=== PATIENT | male | born 1995 | race Caucasian/White ===

== ENCOUNTER 2021-02-09 05:02 | Emergency (ER) | payer SELFPAY ==
[2021-02-09] MEDS ORDERED: Sodium Chloride 0.9% 10 ML Syringe FLUSH PRN (05:19)
[2021-02-09] MEDS ORDERED: Lactated Ringers 1,000 ML IV ONE (05:20)
[2021-02-09] MEDS ORDERED: Naloxone 2 MG/2 ML Syringe IVPUSH ONE (05:20)
--- NOTE | 2021-02-09 05:50 | EDM.PDOC ---
ED HPI GENERAL MEDICAL PROBLEM - General Chief Complaint: Drug or Alcohol Abuse Stated Complaint: overdose Time Seen by Provider: 02/09/21 05:30 Source of Information: Reports: Patient, EMS History Limitations: Reports: No Limitations - History of Present Illness INITIAL COMMENTS - FREE TEXT/NARRATIVE: Patient comes emergency department today by ambulance from home with concerns of a heroin overdose. This patient who has a history of polysubstance abuse and no other past medical history at approximately 4:00 this morning he was smoking what he thought was heroin with his cousin. His cousin noted shortly after smoking heroin that he had some snoring respirations. The cousin administered intranasal Narcan in the ambulance was summoned. Upon EMS arrival the patient was alert and pale and nauseated. Upon arrival the patient is alert and oriented. He relates that he was smoking heroin. He denies taking anything else in an attempt to harm himself. He denies any Tylenol ingestion. He typically uses methamphetamines as an IV drug of choice but he was smoking what he thought was heroin tonight. He complains of being nauseated and weak but he has no chest pain difficulty breathing cough or congestion. No abdominal pain. No vomiting. No hematuria dysuria urinary frequency. No black or tarry stools. - Related Data Allergies Allergy/AdvReac Type Severity Reaction Status Date / Time No Known Allergies Allergy Verified 07/24/19 05:36 Home Meds: Home Meds Gabapentin [Neurontin] 600 mg PO DAILY 02/09/21 [History] risperiDONE [Risperdal] 1 mg PO TID 02/09/21 [History] Past Medical History - Past Health History Medical/Surgical History: Denies Medical/Surgical History Social & Family History - Family History Family Medical History: No Pertinent Family History - Caffeine Use Caffeine Use: Reports: None ED ROS GENERAL - Review of Systems Review Of Systems: Comprehensive ROS is negative, except as noted in HPI. - Physical Exam Exam: See Below Exam Limited By: No Limitations General Appearance: Alert, WD/WN, No Apparent Distress Eye Exam: Bilateral Eye: EOMI, PERRL Ears: Normal External Exam Nose: Normal Inspection Throat/Mouth: Normal Inspection Head Exam: Atraumatic, Normocephalic Neck: Normal Inspection, Supple, Non-Tender, Full Range of Motion Respiratory/Chest: No Respiratory Distress, Lungs Clear, Normal Breath Sounds, No Accessory Muscle Use, Chest Non-Tender Cardiovascular: Normal Peripheral Pulses, Regular Rate, Rhythm, Tachycardia GI/Abdominal: Normal Bowel Sounds, Soft, Non-Tender (Male) Exam: Deferred Rectal (Males) Exam: Deferred Neuro Exam (Abbreviated): Alert, Oriented, Normal Cognition, No Motor/Sensory Deficits Back Exam: Normal Inspection Extremities: Normal Inspection, Normal Range of Motion, No Pedal Edema, Normal Capillary Refill Psychiatric: Anxious Skin Exam: Intact, No Rash, Cool, Diaphoretic, Pallor Course - Vital Signs Last Recorded V/S: Last Vital Signs Temp 96.2 F L 02/09/21 06:26 Pulse 93 02/09/21 08:00 Resp 19 02/09/21 08:00 BP 142/76 H 02/09/21 08:00 Pulse Ox 100 02/09/21 08:00 - Orders/Labs/Meds Orders: Active Orders 24 hr Category Date Time Status SALICYLATE [REF] Stat Lab 02/09/21 05:35 Received Peripheral IV Insertion Adult [OM.PC] Stat Oth 02/09/21 05:19 Ordered Labs: Laboratory Tests 02/09/21 02/09/21 02/09/21 Range/Units 05:30 05:30 05:35 WBC 8.8 (4.0-10.2) K/uL RBC 5.16 (4.33-5.41) M/uL Hgb 15.5 (13.1-16.8) g/dL Hct 43.6 (39.0-49.0) % MCV 84.5 (84.0-98.0) fL MCH 30.0 (28.2-33.3) pg MCHC 35.6 (31.7-36.0) g/dL RDW 11.9 (11.2-14.1) % Plt Count 385 H (150-350) K/uL Neut % (Auto) 49.5 (45.0-80.0) % Lymph % (Auto) 37.7 (10.0-50.0) % [place] % (Auto) 11.1 (2.0-14.0) % Eos % (Auto) 1.1 (0.0-5.0) % Baso % (Auto) 0.6 (0.0-2.0) % Neut # (Auto) 4.36 (1.40-7.00) K/uL Lymph # (Auto) 3.32 (0.50-3.50) K/uL [place] # (Auto) 0.98 (0.00-1.00) K/uL Eos # (Auto) 0.10 (0.00-0.50) K/uL Baso # (Auto) 0.05 (0.00-0.20) K/uL Sodium (136-145) mmol/L Potassium (3.5-5.1) mmol/L Chloride (98-107) mmol/L Carbon Dioxide (21.0-32.0) mmol/L Anion Gap (7-15) meq/L BUN (7-18) mg/dL Creatinine (0.51-1.17) mg/dL Est Cr Clr Drug Dosing Estimated GFR (MDRD) mL/min Glucose (70-99) mg/dL Calcium (8.5-10.1) mg/dL Total Bilirubin (0.2-1.0) mg/dL AST (15-37) U/L ALT (12-78) U/L Alkaline Phosphatase (46-116) IU/L Troponin I High Sens (<=76) ng/L Total Protein (6.4-8.2) g/dL Albumin (3.4-5.0) g/dL Specimen Type Urinvoid Urine Color Yellow Urine Appearance Clear Urine pH 7.0 (5.0-9.0) Ur Specific [place] 1.020 (1.005-1.030) Urine Protein Negative (NEGATIVE) mg/dL Urine Glucose (UA) Negative (NEGATIVE) mg/dL Urine Ketones Negative (NEGATIVE) mg/dL Urine Occult Blood Negative (NEGATIVE) Urine Nitrite Negative (NEGATIVE) Urine Bilirubin Negative (NEGATIVE) Urine Urobilinogen 0.2 (0.2-1.0) E.U./dL Ur Leukocyte Esterase Negative (NEGATIVE) Urine Opiates Screen Negative (NEGATIVE) Ur Buprenorphine Scrn Positive H (NEGATIVE) Ur Oxycodone Screen Negative (NEGATIVE) Ur EDDP (Meth Metab) Negative (NEGATIVE) Acetaminophen (10.0-30.0) ug/mL Ur Barbiturates Screen Negative (NEGATIVE) Ur Tricyclics Screen Negative (NEGATIVE) Ur Amphetamine Screen Positive H (NEGATIVE) U Methamphetamines Scrn Positive H (NEGATIVE) Urine MDMA Screen Positive H (NEGATIVE) U Benzodiazepines Scrn Negative (NEGATIVE) U Cocaine Metab Screen Negative (NEGATIVE) U Marijuana (THC) Screen Negative (NEGATIVE) Ethyl Alcohol (0.000-0.080) g/dL 02/09/21 Range/Units 05:35 WBC (4.0-10.2) K/uL RBC (4.33-5.41) M/uL Hgb (13.1-16.8) g/dL Hct (39.0-49.0) % MCV (84.0-98.0) fL MCH (28.2-33.3) pg MCHC (31.7-36.0) g/dL RDW (11.2-14.1) % Plt Count (150-350) K/uL Neut % (Auto) (45.0-80.0) % Lymph % (Auto) (10.0-50.0) % [place] % (Auto) (2.0-14.0) % Eos % (Auto) (0.0-5.0) % Baso % (Auto) (0.0-2.0) % Neut # (Auto) (1.40-7.00) K/uL Lymph # (Auto) (0.50-3.50) K/uL [place] # (Auto) (0.00-1.00) K/uL Eos # (Auto) (0.00-0.50) K/uL Baso # (Auto) (0.00-0.20) K/uL Sodium 138 (136-145) mmol/L Potassium 3.2 L (3.5-5.1) mmol/L Chloride 97 L (98-107) mmol/L Carbon Dioxide 23.8 (21.0-32.0) mmol/L Anion Gap 20.4 H (7-15) meq/L BUN 14 (7-18) mg/dL Creatinine 1.06 (0.51-1.17) mg/dL Est Cr Clr Drug Dosing TNP Estimated GFR (MDRD) > 60 mL/min Glucose 155 H (70-99) mg/dL Calcium 9.8 (8.5-10.1) mg/dL Total Bilirubin 0.2 (0.2-1.0) mg/dL AST 26 (15-37) U/L ALT 19 (12-78) U/L Alkaline Phosphatase 81 (46-116) IU/L Troponin I High Sens 9 (<=76) ng/L Total Protein 8.6 H (6.4-8.2) g/dL Albumin 4.7 (3.4-5.0) g/dL Specimen Type Urine Color Urine Appearance Urine pH (5.0-9.0) Ur Specific [place] (1.005-1.030) Urine Protein (NEGATIVE) mg/dL Urine Glucose (UA) (NEGATIVE) mg/dL Urine Ketones (NEGATIVE) mg/dL Urine Occult Blood (NEGATIVE) Urine Nitrite (NEGATIVE) Urine Bilirubin (NEGATIVE) Urine Urobilinogen (0.2-1.0) E.U./dL Ur Leukocyte Esterase (NEGATIVE) Urine Opiates Screen (NEGATIVE) Ur Buprenorphine Scrn (NEGATIVE) Ur Oxycodone Screen (NEGATIVE) Ur EDDP (Meth Metab) (NEGATIVE) Acetaminophen 0.0 L (10.0-30.0) ug/mL Ur Barbiturates Screen (NEGATIVE) Ur Tricyclics Screen (NEGATIVE) Ur Amphetamine Screen (NEGATIVE) U Methamphetamines Scrn (NEGATIVE) Urine MDMA Screen (NEGATIVE) U Benzodiazepines Scrn (NEGATIVE) U Cocaine Metab Screen (NEGATIVE) U Marijuana (THC) Screen (NEGATIVE) Ethyl Alcohol 0.001 (0.000-0.080) g/dL Meds: Medications Discontinued Medications Generic Name Dose Route Start Last Admin Trade Name Freq PRN Reason Stop Dose Admin Lactated Ringer's 1,000 mls @ 1,000 mls/hr 02/09/21 05:20 02/09/21 07:04 Ringers, Lactated IV 02/09/21 06:19 1,000 mls/hr .BOLUS ONE Administration Naloxone HCl 2 mg 02/09/21 05:20 Naloxone 2 Mg/2 Ml Syringe IVPUSH 02/09/21 05:21 ONETIME ONE Sodium Chloride 10 ml 02/09/21 05:19 Sodium Chloride 0.9% 10 Ml Syringe FLUSH ASDIRECTED PRN Keep Vein Open - Re-Assessments/Exams Free Text/Narrative Re-Assessment/Exam: IV was established labs are drawn. LR 1 L wide open. Zofran for prophylactic nausea. Narcan was available immediately at the bedside. Continuous cardiac monitoring as well as as pulse oximetry. I did speak with poison control and their guidance was to observe the patient 4 hours post Narcan last administration. He does not need any Narcan at this time he is alert and appropriate. There is no signs of respiratory depression. We will monitor him closely over the next 4 hours. His urine drug screen is positive for buprenorphine, MDMA, amphetamines methamphetamines. Rest of his laboratory evaluation is rather unremarkable. His alcohol is negati ve. His Tylenol level is negative. Salicylate is a send out. Patient was monitored closely throughout his stay over the next 4 hours in the emergency department. He had no respiratory depression. He was alert and appropriate the entire time. The patient is very scared and freaked out over this overdose. He is interested in treatment and assistance. He was given information to follow-up with the [facility] in [place] or his primary care. I discussed the potential concerns of the overdose from his heroin tonight and this is most likely fentanyl as he only needed 1 dose of Narcan. I reaffirmed that having Narcan is a good idea although he needs to ensure that if they do use Narcan in the future to make sure that they call 911 just like they did tonight. He is alert appropriate. His skin is pink warm and dry. There is no respiratory depression. He feels quite a bit better. He was discharged home with his cousin. Departure - Departure Time of Disposition: 08:00 Disposition: Home, Self-Care 01 Clinical Impression: Polysubstance abuse Heroin overdose Qualifiers: Encounter type: initial encounter Injury intent: accidental or unintentional Qualified Code(s): T40.1X1A - Poisoning by heroin, accidental (unintentional), initial encounter - Discharge Information Instructions: Accidental Drug Poisoning, Adult, Substance Use Disorder and Mental Illness, Opioid Overdose Referrals: PCP,None [Primary Care Provider] - Forms: ED Department Discharge Additional Instructions: Discontinue the usage of the recreational drug. If you do choose to continue having the Narcan around is a great idea. Although if you do use the narcan still call 911 as the narcan does not always last as long as the substances. Drink plenty of fluids over the next few days. Return to the ED if new or worsening symptoms. Follow up with PCP with week and consider treatment or counseling for your substance usage. [facility] in [place] Wednesday morning [phone] for help with your substance usage. Sepsis Event Note (ED) - Focused Exam Vital Signs: Vital Signs Temp Pulse Resp BP Pulse Ox 02/09/21 08:00 93 19 142/76 H 100 02/09/21 07:30 100 18 157/88 H 100 02/09/21 07:00 98 18 158/100 H 100 02/09/21 06:26 96.2 F L 102 H 14 158/131 H 99 - My Orders Last 24 Hours: My Active Orders 02/09/21 05:19 Peripheral IV Insertion Adult [OM.PC] Stat 02/09/21 05:35 SALICYLATE [REF] Stat - Assessment/Plan Last 24 Hours: My Active Orders 02/09/21 05:19 Peripheral IV Insertion Adult [OM.PC] Stat 02/09/21 05:35 SALICYLATE [REF] Stat
[2021-02-09 06:14] LABS: CHLORIDE,CL 97 mmol/L (98-107); SODIUM,NA 138 mmol/L (136-145)
[2021-02-09 06:15] LABS: BARBITURATE SCREEN,URINE NEGATIVE (NEGATIVE); BENZODIAZEPINES SCREEN,URINE NEGATIVE (NEGATIVE); BUPRENORPHINE SCREEN,URINE POSITIVE (NEGATIVE); EDDP,URINE SCREEN NEGATIVE (NEGATIVE); TCA SCREEN,URINE NEGATIVE (NEGATIVE); THC SCREEN,URINE 50 NG/ML NEGATIVE (NEGATIVE)
[2021-02-09 06:18] LABS: ANION GAP 20.4 meq/L (7-15)
--- NOTE | 2021-02-09 06:25 | PCM.EKG ---
#1 Interpretation EKG Date: 02/09/21 Time: 05:39 Rhythm: NSR Rate (Beats/Min): 96 [place]: Normal P-Wave: Present QRS: Normal ST-T: Normal QT: Normal Comparison: NA - No Prior EKG
== END 2021-02-09 08:30 | disposition home or self-care (01) ==
LOC: LL.ED 05:02
DX: T40.1X1A Poisoning by heroin, accidental (unintentional), initial encounter (principal); F19.90 Other psychoactive substance use, unspecified, uncomplicated
CPT/HCPCS: 80053; 80143; 80179; 80305-QW; 80307; 81003; 84484; 85025; 93005; 93010; 99284; 99284-25; J7120